=== PATIENT | female | born 1955 | race Hispanic/Latino ===

== ENCOUNTER → 2019-03-19 | Outpatient (CLI) | payer OTHER ==
[~2019-03-19] MED LIST: ASPI-1181 PO; ATOR40TA71 PO; DIPH25 PO; DORZ10DR20 OU; INSU3INS9 SQ; KETO5DRO82 OU; LATA2.5D2 OU; LOSA50TA64 PO; METF-446 PO; METO-408 PO; PIOG15TA66 PO; PRED20TA3 PO; PROP15DR OU; RANI-662 PO; RANI150T7 PO
== END | disposition home or self-care (01) ==
LOC: EDUNIT# 13:00 → SHCH 13:09
PROVIDERS: ATTEND Internal Medicine Cardiovascular Disease
DX: I65.23 Occlusion and stenosis of bilateral carotid arteries (principal)
CPT/HCPCS: 93880

== ENCOUNTER → 2019-03-22 | Outpatient (CLI) | payer OTHER ==
[~2019-03-22] MED LIST changes: +IOHEXOL 350 MG/ML 100ML INFUS..BTL IV ONE; +IOHEXOL-350 50ML VIAL IV ONE
== END | disposition home or self-care (01) ==
LOC: RAH 08:41
PROVIDERS: ATTEND Internal Medicine Cardiovascular Disease
DX: I70.293 Other atherosclerosis of native arteries of extremities, bilateral legs (principal)
CPT/HCPCS: 75635; Q9967 ×2

== ENCOUNTER → 2019-03-22 | Outpatient (CLI) | payer OTHER ==
[~2019-03-22] MED LIST changes: -IOHEXOL 350 MG/ML 100ML INFUS..BTL IV ONE; -IOHEXOL-350 50ML VIAL IV ONE
== END | disposition home or self-care (01) ==
LOC: EDUNIT# 03-12 09:00 → RAH 08:47
PROVIDERS: ATTEND Internal Medicine Cardiovascular Disease
DX: Z13.6 Encounter for screening for cardiovascular disorders (principal)
CPT/HCPCS: 75571

== ENCOUNTER 2019-04-10 05:47 | Day surgery (SDC) | payer OTHER ==
[2019-04-06 11:22] VITALS: BP 170/92
[2019-04-06 11:26] LABS: CREATININE 0.8 mg/dL (0.5-1.5); POTASSIUM 4.4 mmol/L (3.5-5.1)
[2019-04-06 11:28] LABS: BASOPHILS % (AUTO) 0.4 % (0.0-5.0); EOSINOPHILS % (AUTO) 1.1 % (0.0-8.0); HEMATOCRIT 36.6 % (36-48); LYMPHOCYTES % (AUTO) 31.7 % (21.0-51.0); MEAN CORPUSCULAR HEMOGLOBIN 28.8 pg (27.0-33.0); MEAN CORPUSCULAR HGB CONC 32.9 g/dL (32.0-36.0); MEAN CORPUSCULAR VOLUME 87.6 fL (79-99); MONOCYTES % (AUTO) 6.1 % (3.0-13.0); NEUTROPHILS % (AUTO) 60.7 % (40.0-77.0); PLATELET COUNT (AUTO) 199 K/uL (130-400); RED BLOOD CELL COUNT(AUTO) 4.17 MIL/uL (4.00-5.50); RED CELL DISTRIBUTION WIDTH 12.7 % (11.0-15.5); WHITE BLOOD COUNT (AUTO) 6.2 K/uL (4.8-10.8)
[2019-04-06 11:34] LABS: APPEARANCE,URINE Clear (CLEAR); BILIRUBIN,URINE Negative (NEGATIVE); COLOR,URINE Yellow (YELLOW); GLUCOSE, URINE (UA) >=1000 mg/dL (NEGATIVE); KETONES,URINE Negative (NEGATIVE); LEUKOCYTE ESTERASE ,URINE Negative (NEGATIVE); NITRATE,URINE Negative (NEGATIVE); OCCULT BLOOD,URINE Negative (NEGATIVE); PH,URINE 5.5 (5.0-8.0); PROTEIN,URINE Negative (NEGATIVE); UROBILINOGEN,URINE 0.2 mg/dL (0.2-1.0)
[2019-04-06 11:41] LABS: INR 0.91 (0.85-1.15); PARTIAL THROMBOPLASTIN TIME 24.5 SEC (26.3-35.5); PROTHROMBIN TIME 9.6 SEC (9.6-11.6)
[2019-04-06 11:50] LABS: BACTERIA,URINE Rare /HPF (None Seen); RBC,URINE None Seen /HPF (0-1); SQUAMOUS EPITHELIAL CELL,UR Rare /HPF (0-2); WBC,URINE None Seen /HPF (0-1)
[~2019-04-10] VITALS: Ht 154.9 cm; Wt 72.0 kg
[2019-04-10] VITALS (11 sets, daily range): BP systolic 129–170; BP diastolic 60–72
[~2019-04-10 05:47] MED LIST changes: -ASPI-1181 PO; +METHYLPREDNISOLONE SOD SUCC 125MG/2ML VIAL IVP SCH; +SODIUM CHLORIDE 0.9% 500ML 500 ML IV SCH
[2019-04-10] MEDS ORDERED: SODIUM CHLORIDE 0.9% 1000ML 1,000 ML IV ONE (06:08)
--- NOTE | 2019-04-10 06:51 | NUR ---
WOUND LATER EDGE OF LEFT FOOT ON PINKY TOE SIDE SMALL WOUND NOTED .COVERED WITH BANDAID. Addendum: 04/10/19 at 0653 by MAGDALENO PELAYO RN Amended: Links added.
[2019-04-10] MEDS ORDERED: HEPARIN SODIUM 1000UNIT/ML 10ML VIAL ONE (07:12)
[2019-04-10] MEDS ORDERED: LIDOCAINE HCL 2% 20ML ONE (07:13)
[2019-04-10] MEDS ORDERED: MEPERIDINE-PF 25 MG/ML SYG ONE ×2 (07:13→08:12)
[2019-04-10] MEDS ORDERED: IOHEXOL-350 50ML VIAL IV ONE (07:13)
[2019-04-10] MEDS ORDERED: MIDAZOLAM HCL 1 MG/ML 2ML VIAL ONE ×2 (07:13→08:12)
[2019-04-10] MEDS ORDERED: IOHEXOL 350 MG/ML 100ML INFUS..BTL IV ONE (07:13)
[2019-04-10] MEDS ORDERED: NITROGLYCERIN 5 MG/ML 10 ML VIAL IV ONE (07:13)
[2019-04-10] MEDS ORDERED: INSULIN HUMULIN R 100 UNIT/ML 3ML ONE (07:15)
--- NOTE | 2019-04-10 07:25 | NUR ---
PROCEDURE PT TAKEN TO CONTINUOUS [employer] HELPER FOR SCHEDULED PROCEDURE, FAMILY AT BEDSIDE
[2019-04-10] MEDS ORDERED: INSULIN HUMULIN R 100 UNIT/ML 3ML SQ SCH ×2 (07:30→11:30)
[2019-04-10] MEDS ORDERED: LABETALOL HCL 5 MG/ML 20ML VIAL IV ONE (07:59)
[2019-04-10] MEDS ORDERED: SODIUM CHLORIDE 0.9% 1000ML 1,000 ML IV SCH (08:46)
[2019-04-10] MEDS ORDERED: DEXTROSE 50%-WATER 50 ML DISP.SYRIN IV PRN (09:00)
[2019-04-10] MEDS ORDERED: ASPI-1181 PO (09:00)
[2019-04-10] MEDS ORDERED: GLUCAGON 1MG KIT 1 MG ML IM PRN (09:00)
--- NOTE | 2019-04-10 09:15 | NUR ---
post received pt back from labor relations representative s/p [facility], abd aortagram. right groin with Mynx closure device. dressing dry and intact, see post cath assessment, vs stable on arrival. pts daughter at bedside. plan of care discuss with patient / daughter. Dr. Sánchez had a lenghty discussion with patient / daughter about [facility] findings recommendations. He explained in detailed the need for patient to have CABG as soon as possible this admission if patient agreed. Patient/ pts daughter stated they will like to speak to all the family and make a decision based on that. Patient stated she would rather go home and return after Holidays. Dr. Teo Sánchez discuss risks and complications of CAbG and the need for doing cabg soon as possible. Patient's cath diaghram discuss with daughter in detailed , both pt/daughter verbalized understanding. Patient/ pts daughter instructed to keep right leg straight and importance of keeping bedrest for 6 hours. both verbalized understanding. call light within reach.
--- NOTE | 2019-04-10 14:16 | NUR ---
dc dc instructions given to pt's daughter with new rx, instructed to f/u with DR. Church and DR stan Max, copy of heart cath report/diaphragm given to them, instructed to stop metoprolol old dose and start new toprol medication prescribed. Also to hold metformin for 48 hrs post procedure then resume, and continue rest of home meds. right groin dressing dry and intact, no hematoma or bleeding noted. Patient continue bedrest ,
--- NOTE | 2019-04-10 14:45 | NUR ---
report report given to Sheila Wong RN , pt awake and alert in bed
--- NOTE | 2019-04-10 15:15 | NUR ---
Pt discharged home. Tolerating fluids/solids well, voiding well, ambulating well. Pt denies any severe pain, nausea, or dizziness. Discharge instructions and prescription given to pt previously by MENG Donohue. Pt reminded of routine and emergency care of right femoral cath site. Pt and daughter deny any further questions at this time. Right femoral cath site remains soft, non-tender. Dressing remains clean, dry, and intact.
== END 2019-04-10 15:15 | disposition home or self-care (01) ==
LOC: DAH 05:47
PROVIDERS: ATTEND Internal Medicine Cardiovascular Disease
DX: I25.118 Atherosclerotic heart disease of native coronary artery with other forms of angina pectoris (principal); I70.213 Atherosclerosis of native arteries of extremities with intermittent claudication, bilateral legs; L97.528 Non-pressure chronic ulcer of other part of left foot with other specified severity; I10 Essential (primary) hypertension; E78.5 Hyperlipidemia, unspecified; E11.9 Type 2 diabetes mellitus without complications; Z88.1 Allergy status to other antibiotic agents; Z88.2 Allergy status to sulfonamides; Z88.8 Allergy status to other drugs, medicaments and biological substances; Z88.3 Allergy status to other anti-infective agents; Z79.4 Long term (current) use of insulin; Z79.899 Other long term (current) drug therapy; Z79.82 Long term (current) use of aspirin; Z79.01 Long term (current) use of anticoagulants; Z82.49 Family history of ischemic heart disease and other diseases of the circulatory system; Z82.3 Family history of stroke
CPT/HCPCS: 36246; 36415; 71045; 75625; 75716; 80048; 81001; 82948 ×2; 85025; 85610; 85730; 93005; 93458; 96374; A4215; A4216; A4221; A4222; A4223 ×3; A4606; A4663; C1760; C1769; C1894; J1644; J1815 ×2; J2175 ×2; J2250 ×2; J2930; J3490 ×3; J7030; Q9965 ×2; Q9967 ×2; 75630; 99156; 99157

== ENCOUNTER 2021-02-24 16:00 | Inpatient (IN) | payer BC ==
[~2021-02-24] VITALS: Ht 154.9 cm; Wt 69.9 kg
[~2021-02-24 16:00] MED LIST changes: +ASPI-1443 PO; -DIPH25 PO; -DORZ10DR20 OU; -INSU3INS9 SQ; -KETO5DRO82 OU; -LATA2.5D2 OU; -LOSA50TA64 PO; -METF-446 PO; -METHYLPREDNISOLONE SOD SUCC 125MG/2ML VIAL IVP SCH; -METO-408 PO; -PIOG15TA66 PO; -PRED20TA3 PO; -PROP15DR OU; -RANI-662 PO; -RANI150T7 PO; -SODIUM CHLORIDE 0.9% 500ML 500 ML IV SCH
[2021-02-25 12:09] LABS: BASOPHILS % (AUTO) 0.5 % (0.0-5.0); EOSINOPHILS % (AUTO) 0.6 % (0.0-8.0); LYMPHOCYTES % (AUTO) 26.3 % (21.0-51.0); MEAN CORPUSCULAR HEMOGLOBIN 26.7 pg (27.0-33.0); MEAN CORPUSCULAR HGB CONC 31.6 g/dL (32.0-36.0); MEAN CORPUSCULAR VOLUME 84.4 fL (79-99); MONOCYTES % (AUTO) 5.8 % (3.0-13.0); NEUTROPHILS % (AUTO) 66.5 % (40.0-77.0); PLATELET COUNT (AUTO) 262 K/uL (130-400); RED CELL DISTRIBUTION WIDTH 14.1 % (11.0-15.5); WHITE BLOOD COUNT (AUTO) 7.7 K/uL (4.8-10.8)
[2021-02-25 12:20] LABS: PROTHROMBIN TIME 10.9 SEC (9.6-11.6)
[2021-02-25 12:22] LABS: PARTIAL THROMBOPLASTIN TIME 25.6 SEC (26.3-35.5)
[2021-02-25 12:29] LABS: ALBUMIN 4.1 g/dL (3.5-5.0); BILIRUBIN,TOTAL 0.3 mg/dL (0.2-1.0); CREATININE 0.9 mg/dL (0.5-1.5); POTASSIUM 4.9 mmol/L (3.5-5.1)
[2021-02-25 12:44] VITALS: BP 166/86
[2021-02-25] MEDS ORDERED: FLUT16H NASAL (14:13)
[2021-02-25] MEDS ORDERED: LOSA50TA64 PO (14:13)
[2021-02-25] MEDS ORDERED: MV-M1TAB20 PO (14:13)
[2021-02-25] MEDS ORDERED: METF-446 PO (14:13)
[2021-02-25] MEDS ORDERED: INSU3INS9 SQ (14:13)
[2021-02-25] MEDS ORDERED: CILO100T PO (14:13)
[2021-02-25] MEDS ORDERED: MONT-39 PO (14:13)
[2021-02-25] MEDS ORDERED: METO-408 PO (14:13)
[2021-02-27] VITALS (19 sets, daily range): BP systolic 100–179; BP diastolic 46–102
[2021-02-27] MEDS ORDERED: 0.9%NACL 1000ML 1,000 ML IV ONE (10:12)
[2021-02-27] MEDS: CEFAZOLIN SODIUM 1 GM VIAL ONE ×2 (11:26→14:16)
[2021-02-27] MEDS ORDERED: CEFAZOLIN SODIUM 1 GM VIAL ONE (11:55)
[2021-02-27] MEDS ORDERED: TRAMADOL HCL 50 MG TABLET PO PRN (12:00)
[2021-02-27] MEDS ORDERED: ROCURONIUM 10MG/1ML SYR 10 MG/ML ML ONE (12:49)
[2021-02-27] MEDS ORDERED: PROPOFOL 10 MG/ML 20ML VIAL IV ONE (12:49)
[2021-02-27] MEDS ORDERED: MIDAZOLAM HCL 1 MG/ML 2ML VIAL ONE (12:49)
[2021-02-27] MEDS ORDERED: FENTANYL CITRATE PF 50 MCG/1 ML 2ML VIAL ONE (12:49)
[2021-02-27] MEDS ORDERED: EPHEDRINE SULFATE 50 MG/ML AMPULE ONE (13:57)
[2021-02-27] MEDS ORDERED: POTASSIUM CHLORIDE 20MEQ/100ML 100 ML IV PRN (15:00)
[2021-02-27] MEDS ORDERED: GLUCAGON 1MG KIT 1 MG ML IM PRN (15:00)
[2021-02-27] MEDS ORDERED: LIDOCAINE HCL-MPF 1% 2ML VIAL IV PRN (15:00)
[2021-02-27] MEDS ORDERED: DEXTROSE 50%-WATER 50 ML DISP.SYRIN IV PRN (15:00)
[2021-02-27] MEDS ORDERED: KCL 20 MEQ ERTAB PO PRN (15:00)
[2021-02-27] MEDS ORDERED: POTASSIUM CHLORIDE 10% ELIXIR 20 MEQ/15 ML UDCUP PO PRN (15:00)
[2021-02-27] MEDS ORDERED: KETOROLAC 30MG VIAL (30MG/ML) ONE (15:35)
[2021-02-27] MEDS ORDERED: GLYCOPYRROLATE 1 MG/5 ML SYRINGE ONE (15:53)
[2021-02-27] MEDS ORDERED: NEOSTIGMINE 5MG/5ML SYR IV ONE (15:53)
[2021-02-27] MEDS ORDERED: HYDRALAZINE 20MG/ML VIAL ONE (16:21)
[2021-02-27] MEDS ORDERED: MEPERIDINE-PF 25 MG/ML SYG ONE (16:29)
[2021-02-27] MEDS: INSULIN HUMULIN R 100 UNIT/ML 3ML SQ SCH ×2 (16:30→20:33)
[2021-02-27] MEDS: METFORMIN HCL 500 MG TABLET PO SCH (17:00)
[2021-02-27] MEDS: KETOROLAC 30MG VIAL (30MG/ML) IV SCH ×2 (18:08→23:10)
[2021-02-27] MEDS: DOCUSATE SODIUM 100 MG CAP PO SCH (20:33)
[2021-02-27] MEDS: FAMOTIDINE 20MG TAB PO SCH (20:33)
[2021-02-27] MEDS: TRAMADOL HCL 50 MG TABLET PO PRN ×2 (20:33→22:03)
[2021-02-27] MEDS: CEFAZOLIN SODIUM 1 GM VIAL IVP SCH (22:33)
[2021-02-28 02:10] VITALS: BP 144/75
[2021-02-28] MEDS: TRAMADOL HCL 50 MG TABLET PO PRN (04:24)
[2021-02-28 05:27] VITALS: BP 145/66
[2021-02-28] MEDS: KETOROLAC 30MG VIAL (30MG/ML) IV SCH ×3 (06:01→17:47)
[2021-02-28] MEDS: CEFAZOLIN SODIUM 1 GM VIAL IVP SCH ×3 (06:01→22:34)
[2021-02-28] MEDS: INSULIN HUMULIN R 100 UNIT/ML 3ML SQ SCH ×4 (06:41→20:09)
[2021-02-28 08:40] VITALS: BP 120/60
[2021-02-28] MEDS: ONDANSETRON 4MG INJ IVP PRN ×2 (09:11→17:46)
[2021-02-28] MEDS: CLOPIDOGREL 75MG TAB PO SCH (09:15)
[2021-02-28] MEDS: DOCUSATE SODIUM 100 MG CAP PO SCH ×2 (09:15→20:07)
[2021-02-28] MEDS: CILOSTAZOL 100 MG TAB PO SCH (09:16)
[2021-02-28] MEDS: METFORMIN HCL 500 MG TABLET PO SCH ×2 (09:17→16:55)
[2021-02-28] MEDS: ATORVASTATIN 40 MG TABLET PO SCH (09:17)
[2021-02-28] MEDS: FUROSEMIDE 20 MG TABLET PO SCH (09:17)
[2021-02-28] MEDS: FAMOTIDINE 20MG TAB PO SCH ×2 (09:17→20:07)
[2021-02-28] MEDS: LOSARTAN 50 MG TABLET PO SCH (09:17)
[2021-02-28] MEDS: ASPIRIN 81 MG EC TAB PO SCH (09:18)
[2021-02-28] MEDS: METOPROLOL SUCCINATE 50 MG TAB.SR.24H PO SCH (09:18)
[2021-02-28] MEDS: MONTELUKAST SODIUM 10 MG TAB PO SCH (09:18)
[2021-02-28] MEDS: MULTIVITAMINS/MINERALS/IRO TAB PO SCH (11:49)
[2021-02-28] MEDS: FLUTICASONE PROPIONATE 50MCG/SPRAY 16 GM BOTTLE NS SCH (11:49)
[2021-02-28 13:37] VITALS: BP 123/57
[2021-02-28 16:32] VITALS: BP 143/68
[2021-02-28 20:19] VITALS: BP 117/62
[2021-03-01 00:13] VITALS: BP 115/58
[2021-03-01] MEDS: TRAMADOL HCL 50 MG TABLET PO PRN (03:41)
[2021-03-01 04:32] VITALS: BP 131/61
[2021-03-01] MEDS: CEFAZOLIN SODIUM 1 GM VIAL IVP SCH (05:56)
[2021-03-01] MEDS: KETOROLAC 30MG VIAL (30MG/ML) IV SCH ×3 (05:57→11:55)
[2021-03-01] MEDS: INSULIN HUMULIN R 100 UNIT/ML 3ML SQ SCH ×2 (07:00→12:00)
[2021-03-01 08:08] VITALS: BP 131/57
[2021-03-01] MEDS: FAMOTIDINE 20MG TAB PO SCH (08:44)
[2021-03-01] MEDS: CILOSTAZOL 100 MG TAB PO SCH (08:44)
[2021-03-01] MEDS: LOSARTAN 50 MG TABLET PO SCH (08:45)
[2021-03-01] MEDS: MONTELUKAST SODIUM 10 MG TAB PO SCH (08:45)
[2021-03-01] MEDS: ASPIRIN 81 MG EC TAB PO SCH (08:46)
[2021-03-01] MEDS: DOCUSATE SODIUM 100 MG CAP PO SCH (08:46)
[2021-03-01] MEDS: FUROSEMIDE 20 MG TABLET PO SCH (08:46)
[2021-03-01] MEDS: ATORVASTATIN 40 MG TABLET PO SCH (08:46)
[2021-03-01] MEDS: CLOPIDOGREL 75MG TAB PO SCH (08:47)
[2021-03-01] MEDS: METOPROLOL SUCCINATE 50 MG TAB.SR.24H PO SCH (08:47)
[2021-03-01] MEDS: FLUTICASONE PROPIONATE 50MCG/SPRAY 16 GM BOTTLE NS SCH (08:49)
[2021-03-01] MEDS: METFORMIN HCL 500 MG TABLET PO SCH (08:49)
[2021-03-01] MEDS: MULTIVITAMINS/MINERALS/IRO TAB PO SCH (08:49)
[2021-03-01 12:08] VITALS: BP 148/66
== END 2021-03-01 16:19 | disposition home or self-care (01) | DRG 253 ==
LOC: DAHIP 02-27 09:56 → 4DH 02-27 17:14
PROVIDERS: ADMIT Thoracic Surgery (Cardiothoracic Vascular Surgery); ATTEND Thoracic Surgery (Cardiothoracic Vascular Surgery)
PROC: 041M0KQ Bypass Right Popliteal Artery to Lower Extremity Artery with Nonautologous Tissue Substitute, Open Approach (ICD-10-PCS; principal; 2021-02-27 14:20)
DX: E11.51 Type 2 diabetes mellitus with diabetic peripheral angiopathy without gangrene (principal); L97.919 Non-pressure chronic ulcer of unspecified part of right lower leg with unspecified severity; E11.621 Type 2 diabetes mellitus with foot ulcer; E78.00 Pure hypercholesterolemia, unspecified; I10 Essential (primary) hypertension; I25.10 Atherosclerotic heart disease of native coronary artery without angina pectoris; M19.90 Unspecified osteoarthritis, unspecified site; E78.5 Hyperlipidemia, unspecified; Z20.822 Contact with and (suspected) exposure to COVID-19; Z88.2 Allergy status to sulfonamides; Z88.8 Allergy status to other drugs, medicaments and biological substances; Z91.041 Radiographic dye allergy status; Z95.1 Presence of aortocoronary bypass graft
CPT/HCPCS: 36415; 71046; 80053; 82948; 85025; 85610; 85730; 86850; 86900; 86901; 87635; 93005; 97039; G0378; J0360; J0690; J1644; J1815; J1885; J2175; J2250; J2405; J2704; J2710; J3010; J3490; J7030; J7120

== ENCOUNTER 2021-04-01 16:09 | Inpatient (IN) | payer BC ==
[~2021-04-01] VITALS: Ht 160 cm; Wt 64.7 kg
[~2021-04-01 16:09] MED LIST changes: +CILO100T PO; +FLUT16H NASAL; +INSU3INS9 SQ; +LOSA50TA64 PO; +METF-446 PO; +METO-408 PO; +MONT-39 PO; +MV-M1TAB20 PO
[2021-04-01 18:50] LABS: BASOPHILS % (AUTO) 0.5 % (0.0-5.0); EOSINOPHILS % (AUTO) 1.3 % (0.0-8.0); LYMPHOCYTES % (AUTO) 33.7 % (21.0-51.0); MEAN CORPUSCULAR HEMOGLOBIN 26.2 pg (27.0-33.0); MEAN CORPUSCULAR HGB CONC 31.3 g/dL (32.0-36.0); MEAN CORPUSCULAR VOLUME 83.9 fL (79-99); MONOCYTES % (AUTO) 6.3 % (3.0-13.0); NEUTROPHILS % (AUTO) 57.8 % (40.0-77.0); PLATELET COUNT (AUTO) 269 K/uL (130-400); RED BLOOD CELL COUNT(AUTO) 2.86 MIL/uL (4.00-5.50); RED CELL DISTRIBUTION WIDTH 15.1 % (11.0-15.5); WHITE BLOOD COUNT (AUTO) 8.3 K/uL (4.8-10.8)
[2021-04-01 19:17] LABS: POTASSIUM 4.4 mmol/L (3.5-5.1)
[2021-04-01 19:22] LABS: ALBUMIN 4.1 g/dL (3.5-5.0); BILIRUBIN,TOTAL 0.1 mg/dL (0.2-1.0); TOTAL PROTEIN, SERUM 7.9 g/dL (6.0-8.3)
[2021-04-01] MEDS ORDERED: CEFAZOLIN SODIUM 1 GM VIAL IVP PRN (19:30)
[2021-04-01 19:33] LABS: INR 0.99 (0.85-1.15); PROTHROMBIN TIME 10.8 SEC (9.6-11.6)
[2021-04-01 19:34] LABS: PARTIAL THROMBOPLASTIN TIME 21.1 SEC (26.3-35.5)
[2021-04-01] MEDS ORDERED: MORPHINE 2 MG SYG IVP SCH (20:35)
[2021-04-01] MEDS: ONDANSETRON 4MG INJ IVP SCH (20:36)
[2021-04-01 22:30] VITALS: BP 158/82
[2021-04-02] VITALS (13 sets, daily range): BP systolic 111–159; BP diastolic 43–80
[2021-04-02] MEDS ORDERED: MORPHINE 2 MG SYG IVP PRN (02:00)
[2021-04-02 02:38] LABS: MEAN CORPUSCULAR HEMOGLOBIN 26.6 pg (27.0-33.0); MEAN CORPUSCULAR HGB CONC 31.6 g/dL (32.0-36.0); MEAN CORPUSCULAR VOLUME 84.1 fL (79-99); RED BLOOD CELL COUNT(AUTO) 2.33 MIL/uL (4.00-5.50); RED CELL DISTRIBUTION WIDTH 15.2 % (11.0-15.5); WHITE BLOOD COUNT (AUTO) 7.3 K/uL (4.8-10.8)
[2021-04-02 02:45] LABS: HEMATOCRIT 19.6 % (36-48)
[2021-04-02] MEDS ORDERED: MORPHINE 2 MG SYG IVP SCH (02:45)
[2021-04-02 02:47] LABS: CREATININE 0.8 mg/dL (0.5-1.5); POTASSIUM 4.2 mmol/L (3.5-5.1)
[2021-04-02] MEDS ORDERED: FERR325T29 PO (02:48)
[2021-04-02] MEDS ORDERED: CLOP75TA32 PO (02:48)
[2021-04-02 02:59] LABS: HEMOGLOBIN A1C 10.4 % (4.0-6.0)
[2021-04-02 10:37] LABS: HEMATOCRIT 23.3 % (36-48); MEAN CORPUSCULAR HEMOGLOBIN 27.5 pg (27.0-33.0); MEAN CORPUSCULAR VOLUME 83.2 fL (79-99); RED BLOOD CELL COUNT(AUTO) 2.8 MIL/uL (4.00-5.50); RED CELL DISTRIBUTION WIDTH 15.2 % (11.0-15.5); WHITE BLOOD COUNT (AUTO) 7.1 K/uL (4.8-10.8)
[2021-04-02] MEDS ORDERED: CEFAZOLIN SODIUM 1 GM VIAL ONE (14:26)
[2021-04-02] MEDS ORDERED: MIDAZOLAM HCL 1 MG/ML 2ML VIAL ONE (15:00)
[2021-04-02] MEDS ORDERED: PROPOFOL 10 MG/ML 20ML VIAL IV ONE (15:00)
[2021-04-02] MEDS ORDERED: LIDOCAINE PF 100MG/5ML (2%) SYRINGE 5ML ONE (15:00)
[2021-04-02] MEDS ORDERED: FENTANYL CITRATE PF 50 MCG/1 ML 2ML VIAL ONE ×4 (15:01→18:11)
[2021-04-02] MEDS ORDERED: ROCURONIUM 10MG/1ML SYR 10 MG/ML ML ONE (15:08)
[2021-04-02 16:12] LABS: HEMATOCRIT 21.1 % (36-48)
[2021-04-02] MEDS ORDERED: LABETALOL 20MG VIAL IV ONE (17:19)
[2021-04-02] MEDS ORDERED: GLYCOPYRROLATE 1 MG/5 ML SYRINGE ONE (17:19)
[2021-04-02] MEDS ORDERED: ONDANSETRON 4MG INJ ONE (17:19)
[2021-04-02] MEDS ORDERED: NEOSTIGMINE 5MG/5ML SYR IV ONE (17:21)
[2021-04-02] MEDS ORDERED: ACETAMINOPHEN 325 MG TAB PO PRN (18:00)
[2021-04-02] MEDS ORDERED: HYDRALAZINE 20MG/ML VIAL IV PRN (19:00)
[2021-04-02] MEDS: METOPROLOL SUCCINATE 50 MG TAB.SR.24H PO SCH (19:49)
[2021-04-02] MEDS: LOSARTAN 50 MG TABLET PO SCH (19:53)
[2021-04-02] MEDS: TRAMADOL HCL 50 MG TABLET PO PRN ×2 (19:54→20:26)
[2021-04-02] MEDS: GABAPENTIN 100 MG CAPSULE PO SCH (20:30)
[2021-04-02] MEDS: ONDANSETRON 4MG INJ IVP SCH (20:36)
[2021-04-02] MEDS ORDERED: MORPHINE 2 MG SYG ONE (23:26)
[2021-04-03] VITALS (9 sets, daily range): BP systolic 90–162; BP diastolic 44–67
[2021-04-03 00:03] LABS: HEMATOCRIT 25.3 % (36-48)
[2021-04-03] MEDS: CEFAZOLIN SODIUM 1 GM VIAL IVP SCH ×3 (01:00→17:26)
[2021-04-03] MEDS: MORPHINE 2 MG SYG IVP PRN ×3 (03:29→06:24)
[2021-04-03 06:38] LABS: HEMATOCRIT 26.3 % (36-48)
[2021-04-03] MEDS: TRAMADOL HCL 50 MG TABLET PO PRN (07:47)
[2021-04-03] MEDS: METOPROLOL SUCCINATE 50 MG TAB.SR.24H PO SCH (07:47)
[2021-04-03] MEDS: GABAPENTIN 100 MG CAPSULE PO SCH ×2 (07:48→21:00)
[2021-04-03] MEDS: LOSARTAN 50 MG TABLET PO SCH (07:48)
[2021-04-03] MEDS ORDERED: DEXTROSE 50%-WATER 50 ML DISP.SYRIN IV PRN (08:00)
[2021-04-03] MEDS ORDERED: GLUCAGON 1MG KIT 1 MG ML IM PRN (08:00)
[2021-04-03 08:12] LABS: MEAN CORPUSCULAR HEMOGLOBIN 28.1 pg (27.0-33.0); MEAN CORPUSCULAR VOLUME 85.3 fL (79-99); RED BLOOD CELL COUNT(AUTO) 3.13 MIL/uL (4.00-5.50); RED CELL DISTRIBUTION WIDTH 15.5 % (11.0-15.5); WHITE BLOOD COUNT (AUTO) 6.9 K/uL (4.8-10.8)
[2021-04-03 08:55] LABS: CREATININE 0.8 mg/dL (0.5-1.5); POTASSIUM 4.5 mmol/L (3.5-5.1)
[2021-04-03] MEDS: CLOPIDOGREL 75MG TAB PO SCH ×2 (09:00→09:10)
[2021-04-03] MEDS ORDERED: FLUTICASONE PROPIONATE 50MCG/SPRAY 16 GM BOTTLE EN SCH (09:00)
[2021-04-03] MEDS ORDERED: METOPROLOL SUCCINATE 50 MG TAB.SR.24H PO SCH (09:00)
[2021-04-03] MEDS ORDERED: FE FUMARATE/FA/MV, MIN COMB#15 1 TAB PO SCH (09:00)
[2021-04-03] MEDS: CILOSTAZOL 100 MG TAB PO SCH ×3 (09:00→21:00)
[2021-04-03] MEDS ORDERED: LOSARTAN 50 MG TABLET PO SCH (09:00)
[2021-04-03] MEDS: ASPIRIN 81 MG EC TAB PO SCH ×2 (09:00→09:11)
[2021-04-03] MEDS: METFORMIN HCL 500 MG TABLET PO SCH ×2 (09:09→17:26)
[2021-04-03] MEDS: KETOROLAC 30MG VIAL (30MG/ML) IV SCH ×3 (09:10→21:00)
[2021-04-03] MEDS: FERROUS SULFATE 325 MG TABLET.DR PO SCH ×2 (09:11→17:26)
[2021-04-03] MEDS: MONTELUKAST SODIUM 10 MG TAB PO SCH (09:11)
[2021-04-03] MEDS: FAMOTIDINE 20MG TAB PO SCH ×2 (09:11→21:00)
[2021-04-03] MEDS: INSULIN HUMULIN R 100 UNIT/ML 3ML SQ SCH ×3 (11:30→22:05)
[2021-04-03 12:26] LABS: HEMATOCRIT 28.2 % (36-48)
[2021-04-03] MEDS: FLUTICASONE PROPIONATE 50MCG/SPRAY 16 GM BOTTLE EN SCH (13:56)
[2021-04-03] MEDS: FE FUMARATE/FA/MV, MIN COMB#15 1 TAB PO SCH (17:26)
[2021-04-03 17:48] LABS: HEMATOCRIT 29.1 % (36-48)
[2021-04-03] MEDS: ONDANSETRON 4MG INJ IVP SCH (20:36)
[2021-04-03] MEDS: ATORVASTATIN 40 MG TABLET PO SCH (21:00)
[2021-04-04 03:18] VITALS: BP 107/58
[2021-04-04] MEDS: KETOROLAC 30MG VIAL (30MG/ML) IV SCH ×4 (03:48→20:58)
[2021-04-04] MEDS: TRAMADOL HCL 50 MG TABLET PO PRN (03:49)
[2021-04-04 04:18] LABS: HEMATOCRIT 28.1 % (36-48); MEAN CORPUSCULAR HEMOGLOBIN 27.6 pg (27.0-33.0); MEAN CORPUSCULAR VOLUME 86.2 fL (79-99); RED BLOOD CELL COUNT(AUTO) 3.26 MIL/uL (4.00-5.50); WHITE BLOOD COUNT (AUTO) 10.4 K/uL (4.8-10.8)
[2021-04-04 04:30] LABS: CREATININE 1.1 mg/dL (0.5-1.5); POTASSIUM 3.8 mmol/L (3.5-5.1)
[2021-04-04] MEDS: INSULIN HUMULIN R 100 UNIT/ML 3ML SQ SCH ×4 (07:20→21:07)
[2021-04-04 07:57] VITALS: BP 95/51
[2021-04-04] MEDS: ASPIRIN 81 MG EC TAB PO SCH (08:44)
[2021-04-04] MEDS: GABAPENTIN 100 MG CAPSULE PO SCH ×2 (08:44→20:58)
[2021-04-04] MEDS: FLUTICASONE PROPIONATE 50MCG/SPRAY 16 GM BOTTLE EN SCH (08:47)
[2021-04-04] MEDS: FERROUS SULFATE 325 MG TABLET.DR PO SCH ×2 (08:47→16:43)
[2021-04-04] MEDS: CILOSTAZOL 100 MG TAB PO SCH ×2 (08:53→20:58)
[2021-04-04] MEDS: FAMOTIDINE 20MG TAB PO SCH ×2 (08:53→20:58)
[2021-04-04] MEDS: METOPROLOL SUCCINATE 50 MG TAB.SR.24H PO SCH ×2 (09:00→11:21)
[2021-04-04] MEDS ORDERED: KCL 20 MEQ ERTAB PO PRN (11:00)
[2021-04-04] MEDS ORDERED: POTASSIUM CHLORIDE 20MEQ/100ML 100 ML IV PRN (11:00)
[2021-04-04] MEDS ORDERED: POTASSIUM CHLORIDE 10% ELIXIR 20 MEQ/15 ML UDCUP PO PRN (11:00)
[2021-04-04] MEDS ORDERED: LIDOCAINE HCL-MPF 1% 2ML VIAL IV PRN (11:00)
[2021-04-04] MEDS: CLOPIDOGREL 75MG TAB PO SCH (11:20)
[2021-04-04] MEDS: MONTELUKAST SODIUM 10 MG TAB PO SCH (11:20)
[2021-04-04] MEDS: FE FUMARATE/FA/MV, MIN COMB#15 1 TAB PO SCH (11:20)
[2021-04-04] MEDS: FUROSEMIDE 20 MG TABLET PO SCH ×2 (11:21→18:30)
[2021-04-04] MEDS: METFORMIN HCL 500 MG TABLET PO SCH ×2 (11:21→16:43)
[2021-04-04 11:34] VITALS: BP 122/57
[2021-04-04 16:05] VITALS: BP 115/52
[2021-04-04] MEDS: LOSARTAN 50 MG TABLET PO SCH (16:44)
[2021-04-04] MEDS: ONDANSETRON 4MG INJ IVP SCH (19:17)
[2021-04-04 20:00] VITALS: BP 98/49
[2021-04-04] MEDS: ATORVASTATIN 40 MG TABLET PO SCH (20:58)
[2021-04-05] VITALS (7 sets, daily range): BP systolic 90–148; BP diastolic 43–93
[2021-04-05] MEDS: TRAMADOL HCL 50 MG TABLET PO PRN (00:40)
[2021-04-05] MEDS: KETOROLAC 30MG VIAL (30MG/ML) IV SCH ×3 (02:07→15:08)
[2021-04-05 03:38] LABS: HEMATOCRIT 25.2 % (36-48); MEAN CORPUSCULAR HEMOGLOBIN 28.3 pg (27.0-33.0); MEAN CORPUSCULAR HGB CONC 32.5 g/dL (32.0-36.0); MEAN CORPUSCULAR VOLUME 86.9 fL (79-99); RED BLOOD CELL COUNT(AUTO) 2.9 MIL/uL (4.00-5.50); RED CELL DISTRIBUTION WIDTH 15.7 % (11.0-15.5); WHITE BLOOD COUNT (AUTO) 9.2 K/uL (4.8-10.8)
[2021-04-05 03:50] LABS: CREATININE 1.2 mg/dL (0.5-1.5)
[2021-04-05] MEDS: INSULIN HUMULIN R 100 UNIT/ML 3ML SQ SCH ×4 (06:16→20:27)
[2021-04-05] MEDS: GABAPENTIN 100 MG CAPSULE PO SCH ×2 (07:49→20:11)
[2021-04-05] MEDS: CILOSTAZOL 100 MG TAB PO SCH ×2 (07:49→20:11)
[2021-04-05] MEDS: LOSARTAN 50 MG TABLET PO SCH (07:49)
[2021-04-05] MEDS: ASPIRIN 81 MG EC TAB PO SCH (07:49)
[2021-04-05] MEDS: CLOPIDOGREL 75MG TAB PO SCH (07:49)
[2021-04-05] MEDS: METOPROLOL SUCCINATE 50 MG TAB.SR.24H PO SCH ×2 (07:50→09:00)
[2021-04-05] MEDS: FAMOTIDINE 20MG TAB PO SCH ×2 (07:50→20:11)
[2021-04-05] MEDS: FUROSEMIDE 20 MG TABLET PO SCH ×2 (07:50→16:24)
[2021-04-05] MEDS: METFORMIN HCL 500 MG TABLET PO SCH ×2 (07:51→16:24)
[2021-04-05] MEDS: FE FUMARATE/FA/MV, MIN COMB#15 1 TAB PO SCH (09:01)
[2021-04-05] MEDS: FERROUS SULFATE 325 MG TABLET.DR PO SCH ×2 (09:01→16:23)
[2021-04-05] MEDS: FLUTICASONE PROPIONATE 50MCG/SPRAY 16 GM BOTTLE EN SCH (09:01)
[2021-04-05] MEDS: MONTELUKAST SODIUM 10 MG TAB PO SCH (09:02)
[2021-04-05] MEDS: ONDANSETRON 4MG INJ IVP SCH (20:07)
[2021-04-05] MEDS: ATORVASTATIN 40 MG TABLET PO SCH (20:11)
[2021-04-06] VITALS (7 sets, daily range): BP systolic 101–136; BP diastolic 47–63
[2021-04-06] MEDS: TRAMADOL HCL 50 MG TABLET PO PRN (04:02)
[2021-04-06] MEDS: INSULIN HUMULIN R 100 UNIT/ML 3ML SQ SCH ×3 (06:15→21:00)
[2021-04-06] MEDS: FLUTICASONE PROPIONATE 50MCG/SPRAY 16 GM BOTTLE EN SCH (09:00)
[2021-04-06] MEDS: METOPROLOL SUCCINATE 50 MG TAB.SR.24H PO SCH ×2 (09:00→10:37)
[2021-04-06] MEDS: METFORMIN HCL 500 MG TABLET PO SCH ×2 (10:34→16:44)
[2021-04-06] MEDS: FERROUS SULFATE 325 MG TABLET.DR PO SCH ×2 (10:34→16:39)
[2021-04-06] MEDS: ASPIRIN 81 MG EC TAB PO SCH (10:34)
[2021-04-06] MEDS: LOSARTAN 50 MG TABLET PO SCH (10:35)
[2021-04-06] MEDS: FE FUMARATE/FA/MV, MIN COMB#15 1 TAB PO SCH (10:35)
[2021-04-06] MEDS: FUROSEMIDE 20 MG TABLET PO SCH ×2 (10:35→16:39)
[2021-04-06] MEDS: FAMOTIDINE 20MG TAB PO SCH ×2 (10:36→22:21)
[2021-04-06] MEDS: GABAPENTIN 100 MG CAPSULE PO SCH ×2 (10:36→22:21)
[2021-04-06] MEDS: CLOPIDOGREL 75MG TAB PO SCH (10:36)
[2021-04-06] MEDS: CILOSTAZOL 100 MG TAB PO SCH ×2 (10:37→22:21)
[2021-04-06] MEDS: MONTELUKAST SODIUM 10 MG TAB PO SCH (10:37)
[2021-04-06] MEDS: ONDANSETRON 4MG INJ IVP SCH (10:52)
[2021-04-06] MEDS: ATORVASTATIN 40 MG TABLET PO SCH (22:21)
[2021-04-07] VITALS (7 sets, daily range): BP systolic 88–139; BP diastolic 46–68
[2021-04-07] MEDS: TRAMADOL HCL 50 MG TABLET PO PRN (02:42)
[2021-04-07] MEDS: INSULIN HUMULIN R 100 UNIT/ML 3ML SQ SCH ×4 (07:20→22:42)
[2021-04-07] MEDS: FLUTICASONE PROPIONATE 50MCG/SPRAY 16 GM BOTTLE EN SCH (09:00)
[2021-04-07] MEDS: METOPROLOL SUCCINATE 50 MG TAB.SR.24H PO SCH ×2 (09:00→09:17)
[2021-04-07] MEDS: METFORMIN HCL 500 MG TABLET PO SCH ×2 (09:13→17:08)
[2021-04-07] MEDS: FERROUS SULFATE 325 MG TABLET.DR PO SCH ×2 (09:13→17:07)
[2021-04-07] MEDS: LOSARTAN 50 MG TABLET PO SCH (09:14)
[2021-04-07] MEDS: ASPIRIN 81 MG EC TAB PO SCH (09:14)
[2021-04-07] MEDS: FE FUMARATE/FA/MV, MIN COMB#15 1 TAB PO SCH (09:15)
[2021-04-07] MEDS: FUROSEMIDE 20 MG TABLET PO SCH ×2 (09:15→17:08)
[2021-04-07] MEDS: GABAPENTIN 100 MG CAPSULE PO SCH ×2 (09:16→22:31)
[2021-04-07] MEDS: FAMOTIDINE 20MG TAB PO SCH ×2 (09:16→22:32)
[2021-04-07] MEDS: CLOPIDOGREL 75MG TAB PO SCH (09:17)
[2021-04-07] MEDS: CILOSTAZOL 100 MG TAB PO SCH ×2 (09:17→22:32)
[2021-04-07] MEDS: MONTELUKAST SODIUM 10 MG TAB PO SCH (09:17)
[2021-04-07] MEDS: ONDANSETRON 4MG INJ IVP SCH (11:50)
[2021-04-07] MEDS: ATORVASTATIN 40 MG TABLET PO SCH (22:32)
[2021-04-08 04:20] VITALS: BP 113/58
[2021-04-08] MEDS ORDERED: TRAMADOL HCL 50 MG TABLET PO PRN ×2 (04:30)
[2021-04-08 05:37] LABS: BASOPHILS % (AUTO) 0.7 % (0.0-5.0); EOSINOPHILS % (AUTO) 5.9 % (0.0-8.0); HEMATOCRIT 24.1 % (36-48); LYMPHOCYTES % (AUTO) 22.1 % (21.0-51.0); MEAN CORPUSCULAR HEMOGLOBIN 28.3 pg (27.0-33.0); MEAN CORPUSCULAR HGB CONC 33.2 g/dL (32.0-36.0); MEAN CORPUSCULAR VOLUME 85.2 fL (79-99); MONOCYTES % (AUTO) 13.7 % (3.0-13.0); NEUTROPHILS % (AUTO) 57.1 % (40.0-77.0); PLATELET COUNT (AUTO) 275 K/uL (130-400); RED BLOOD CELL COUNT(AUTO) 2.83 MIL/uL (4.00-5.50); RED CELL DISTRIBUTION WIDTH 15.1 % (11.0-15.5); WHITE BLOOD COUNT (AUTO) 6.1 K/uL (4.8-10.8)
[2021-04-08] MEDS: INSULIN HUMULIN R 100 UNIT/ML 3ML SQ SCH ×2 (06:07→12:41)
[2021-04-08 06:12] LABS: ALBUMIN 2.9 g/dL (3.5-5.0); BILIRUBIN,TOTAL 0.3 mg/dL (0.2-1.0); CREATININE 1.2 mg/dL (0.5-1.5); POTASSIUM 3.8 mmol/L (3.5-5.1); TOTAL PROTEIN, SERUM 6.4 g/dL (6.0-8.3)
[2021-04-08 07:50] VITALS: BP 134/67
[2021-04-08] MEDS: METOPROLOL SUCCINATE 50 MG TAB.SR.24H PO SCH ×2 (09:00→09:52)
[2021-04-08] MEDS: FLUTICASONE PROPIONATE 50MCG/SPRAY 16 GM BOTTLE EN SCH (09:00)
[2021-04-08] MEDS: FERROUS SULFATE 325 MG TABLET.DR PO SCH (09:29)
[2021-04-08] MEDS: FE FUMARATE/FA/MV, MIN COMB#15 1 TAB PO SCH (09:30)
[2021-04-08] MEDS: METFORMIN HCL 500 MG TABLET PO SCH (09:30)
[2021-04-08] MEDS: CLOPIDOGREL 75MG TAB PO SCH (09:49)
[2021-04-08] MEDS: GABAPENTIN 100 MG CAPSULE PO SCH (09:50)
[2021-04-08] MEDS: ASPIRIN 81 MG EC TAB PO SCH (09:50)
[2021-04-08] MEDS: MONTELUKAST SODIUM 10 MG TAB PO SCH (09:50)
[2021-04-08] MEDS: FAMOTIDINE 20MG TAB PO SCH (09:51)
[2021-04-08] MEDS: FUROSEMIDE 20 MG TABLET PO SCH (09:51)
[2021-04-08] MEDS: LOSARTAN 50 MG TABLET PO SCH (09:52)
[2021-04-08] MEDS: CILOSTAZOL 100 MG TAB PO SCH (09:53)
[2021-04-08 12:29] VITALS: BP 118/58
[2021-04-08 15:23] VITALS: BP 159/63
== END 2021-04-08 16:00 | DRG 253 ==
LOC: EDH 16:09 → EDHIP 19:30 → 4BH 22:30 → 2DH 04-02 17:50 → 4CH 04-06 00:48
PROVIDERS: ADMIT Thoracic Surgery (Cardiothoracic Vascular Surgery); ATTEND Thoracic Surgery (Cardiothoracic Vascular Surgery)
PROC: 30233N1 Transfusion of Nonautologous Red Blood Cells into Peripheral Vein, Percutaneous Approach (ICD-10-PCS; 2021-04-02)
PROC: 04WY0KZ Revision of Nonautologous Tissue Substitute in Lower Artery, Open Approach (ICD-10-PCS; principal; 2021-04-02 15:04)
DX: T82.838A Hemorrhage due to vascular prosthetic devices, implants and grafts, initial encounter (principal); N17.9 Acute kidney failure, unspecified; L97.919 Non-pressure chronic ulcer of unspecified part of right lower leg with unspecified severity; L76.22 Postprocedural hemorrhage of skin and subcutaneous tissue following other procedure; D64.9 Anemia, unspecified; E11.51 Type 2 diabetes mellitus with diabetic peripheral angiopathy without gangrene; E11.40 Type 2 diabetes mellitus with diabetic neuropathy, unspecified; I10 Essential (primary) hypertension; E78.5 Hyperlipidemia, unspecified; E11.621 Type 2 diabetes mellitus with foot ulcer; L97.509 Non-pressure chronic ulcer of other part of unspecified foot with unspecified severity; Z20.822 Contact with and (suspected) exposure to COVID-19; E78.00 Pure hypercholesterolemia, unspecified; F41.9 Anxiety disorder, unspecified; I25.10 Atherosclerotic heart disease of native coronary artery without angina pectoris; Y83.8 Other surgical procedures as the cause of abnormal reaction of the patient, or of later complication, without mention of misadventure at the time of the procedure; Y92.89 Other specified places as the place of occurrence of the external cause; Z79.899 Other long term (current) drug therapy; Z88.2 Allergy status to sulfonamides; Z88.8 Allergy status to other drugs, medicaments and biological substances; Z91.041 Radiographic dye allergy status; Z90.49 Acquired absence of other specified parts of digestive tract; Z95.1 Presence of aortocoronary bypass graft; Z82.49 Family history of ischemic heart disease and other diseases of the circulatory system
CPT/HCPCS: 36415; 80048; 80053; 82948; 83036; 85014; 85018; 85025; 85027; 85610; 85730; 86850; 86900; 86901; 86923; 87635; 97039; A4344; C1757; G0378; J0690; J1644; J1815; J1885; J2001; J2250; J2405; J2704; J2710; J3010; J3490; J7030; J7040; P9016

== ENCOUNTER 2021-04-11 14:08 | Inpatient (IN) | payer BC ==
[2021-04-11] VITALS (10 sets, daily range): BP systolic 119–165; BP diastolic 64–78
[~2021-04-11] VITALS: Ht 157.5 cm; Wt 72.6 kg
[~2021-04-11 14:08] MED LIST changes: +CLOP75TA32 PO; +FERR325T29 PO
[2021-04-11] MEDS ORDERED: LACTATED RINGERS 1000ML 1,000 ML IV SCH (15:00)
[2021-04-11] MEDS ORDERED: MORPHINE 4 MG SYG IV PRN (15:00)
[2021-04-11] MEDS ORDERED: HYDRALAZINE 20MG/ML VIAL IV PRN (15:00)
[2021-04-11] MEDS: MORPHINE 4 MG SYG IV PRN (15:28)
[2021-04-11 15:34] LABS: HEMATOCRIT 24.5 % (36-48); MEAN CORPUSCULAR HEMOGLOBIN 27.1 pg (27.0-33.0); MEAN CORPUSCULAR HGB CONC 32.2 g/dL (32.0-36.0); MEAN CORPUSCULAR VOLUME 84.2 fL (79-99); RED BLOOD CELL COUNT(AUTO) 2.91 MIL/uL (4.00-5.50); RED CELL DISTRIBUTION WIDTH 14.9 % (11.0-15.5); WHITE BLOOD COUNT (AUTO) 9.4 K/uL (4.8-10.8)
[2021-04-11 15:49] LABS: ALBUMIN 3.2 g/dL (3.5-5.0); BILIRUBIN,TOTAL 0.4 mg/dL (0.2-1.0); INR 1.05 (0.85-1.15); POTASSIUM 3.8 mmol/L (3.5-5.1); PROTHROMBIN TIME 11.4 SEC (9.6-11.6); TOTAL PROTEIN, SERUM 6.5 g/dL (6.0-8.3)
[2021-04-11] MEDS: CEFAZOLIN SODIUM 1 GM VIAL IVP SCH ×2 (16:39→23:47)
[2021-04-11 16:53] LABS: APPEARANCE,URINE Clear (CLEAR); BILIRUBIN,URINE Negative (NEGATIVE); COLOR,URINE Yellow (YELLOW); GLUCOSE, URINE (UA) TRACE mg/dL (NEGATIVE); KETONES,URINE 15 mg/dL (NEGATIVE); LEUKOCYTE ESTERASE ,URINE Negative (NEGATIVE); NITRATE,URINE Negative (NEGATIVE); OCCULT BLOOD,URINE Negative (NEGATIVE); PROTEIN,URINE Negative (NEGATIVE); UROBILINOGEN,URINE 0.2 mg/dL (0.2-1.0)
[2021-04-11 17:05] LABS: BACTERIA,URINE Few /HPF (None Seen); MUCUS,URINE Moderate LPF (None Seen); SQUAMOUS EPITHELIAL CELL,UR Few /HPF (0-2); WBC,URINE 0-1 /HPF (0-1)
[2021-04-11 19:14] LABS: HEMATOCRIT 22.9 % (36-48)
[2021-04-11] MEDS ORDERED: 0.9% NACL 500ML IV.SOLN 500 ML IV ONE (20:04)
[2021-04-11] MEDS: FAMOTIDINE 20MG VIAL IV SCH (20:38)
[2021-04-12] VITALS (25 sets, daily range): BP systolic 124–168; BP diastolic 57–81
[2021-04-12] MEDS: MORPHINE 4 MG SYG IV PRN ×4 (00:03→17:47)
[2021-04-12 07:05] LABS: BASOPHILS % (AUTO) 0.5 % (0.0-5.0); EOSINOPHILS % (AUTO) 0.2 % (0.0-8.0); HEMATOCRIT 25.1 % (36-48); LYMPHOCYTES % (AUTO) 12.3 % (21.0-51.0); MEAN CORPUSCULAR HEMOGLOBIN 27.9 pg (27.0-33.0); MEAN CORPUSCULAR HGB CONC 33.5 g/dL (32.0-36.0); MEAN CORPUSCULAR VOLUME 83.4 fL (79-99); MONOCYTES % (AUTO) 8.5 % (3.0-13.0); PLATELET COUNT (AUTO) 272 K/uL (130-400); RED BLOOD CELL COUNT(AUTO) 3.01 MIL/uL (4.00-5.50); RED CELL DISTRIBUTION WIDTH 14.5 % (11.0-15.5); WHITE BLOOD COUNT (AUTO) 8.6 K/uL (4.8-10.8)
[2021-04-12 07:13] LABS: CREATININE 0.8 mg/dL (0.5-1.5); POTASSIUM 3.6 mmol/L (3.5-5.1)
[2021-04-12] MEDS: CEFAZOLIN SODIUM 1 GM VIAL IVP SCH ×3 (07:33→23:44)
[2021-04-12] MEDS: FAMOTIDINE 20MG VIAL IV SCH ×2 (08:14→20:34)
[2021-04-12] MEDS ORDERED: HYDRALAZINE 20MG/ML VIAL IV PRN (10:30)
[2021-04-12] MEDS ORDERED: METOPROLOL TARTRATE 1 MG/ML 5ML VIAL IV PRN (10:30)
[2021-04-12 10:31] LABS: HEMOGLOBIN A1C 7.4 % (4.0-6.0)
[2021-04-12] MEDS: METOPROLOL SUCCINATE 50 MG TAB.SR.24H PO SCH (10:38)
[2021-04-12] MEDS: LOSARTAN 50 MG TABLET PO SCH (10:38)
[2021-04-12] MEDS: INSULIN HUMULIN R 100 UNIT/ML 3ML SQ SCH ×4 (11:00→23:46)
[2021-04-12] MEDS ORDERED: SOLU-MEDROL 40MG VIAL IVP ONE ×2 (16:30→20:30)
[2021-04-12] MEDS ORDERED: DiphenhydrAMINE HCL 50 MG/ML VIAL IV ONE (20:30)
[2021-04-12] MEDS ORDERED: IOHEXOL-350 75 ML VIAL IV ONE (21:03)
[2021-04-12] MEDS ORDERED: IOHEXOL-350 50ML VIAL IV ONE (21:03)
[2021-04-12] MEDS: INSULIN GLARGINE 100 UNITS/ML 10 ML VIAL SQ SCH (21:07)
[2021-04-13] VITALS (23 sets, daily range): BP systolic 103–159; BP diastolic 39–82
[2021-04-13] MEDS: INSULIN HUMULIN R 100 UNIT/ML 3ML SQ SCH ×4 (06:04→21:15)
[2021-04-13 07:55] LABS: BASOPHILS % (AUTO) 0.2 % (0.0-5.0); HEMATOCRIT 28.7 % (36-48); LYMPHOCYTES % (AUTO) 11.3 % (21.0-51.0); MEAN CORPUSCULAR HEMOGLOBIN 27.4 pg (27.0-33.0); MEAN CORPUSCULAR HGB CONC 32.4 g/dL (32.0-36.0); MEAN CORPUSCULAR VOLUME 84.7 fL (79-99); MONOCYTES % (AUTO) 5.5 % (3.0-13.0); NEUTROPHILS % (AUTO) 82.3 % (40.0-77.0); PLATELET COUNT (AUTO) 392 K/uL (130-400); RED BLOOD CELL COUNT(AUTO) 3.39 MIL/uL (4.00-5.50); RED CELL DISTRIBUTION WIDTH 14.8 % (11.0-15.5); WHITE BLOOD COUNT (AUTO) 11.5 K/uL (4.8-10.8)
[2021-04-13] MEDS: CEFAZOLIN SODIUM 1 GM VIAL IVP SCH ×3 (08:06→23:31)
[2021-04-13] MEDS: METOPROLOL SUCCINATE 50 MG TAB.SR.24H PO SCH (08:06)
[2021-04-13] MEDS: LOSARTAN 50 MG TABLET PO SCH (08:06)
[2021-04-13] MEDS: FAMOTIDINE 20MG VIAL IV SCH ×2 (08:07→20:53)
[2021-04-13] MEDS: ATORVASTATIN 40 MG TABLET PO SCH (08:08)
[2021-04-13 08:25] LABS: ALBUMIN 3.3 g/dL (3.5-5.0); BILIRUBIN,TOTAL 0.5 mg/dL (0.2-1.0); CREATININE 1.1 mg/dL (0.5-1.5); POTASSIUM 3.6 mmol/L (3.5-5.1); TOTAL PROTEIN, SERUM 7.2 g/dL (6.0-8.3)
[2021-04-13] MEDS: ASPIRIN 81 MG EC TAB PO SCH (09:30)
[2021-04-13] MEDS: FUROSEMIDE 20 MG TABLET PO SCH (09:30)
[2021-04-13] MEDS: MORPHINE 4 MG SYG IV PRN (12:50)
[2021-04-13] MEDS: GABAPENTIN 100 MG CAPSULE PO SCH ×2 (14:12→20:53)
[2021-04-13] MEDS ORDERED: ACETAMINOPHEN 325 MG TAB ONE (19:40)
[2021-04-13] MEDS ORDERED: TRAMADOL HCL 50 MG TABLET ONE (20:45)
[2021-04-13] MEDS ORDERED: TRAMADOL HCL 50 MG TABLET PO ONE (21:00)
[2021-04-13] MEDS: INSULIN GLARGINE 100 UNITS/ML 10 ML VIAL SQ SCH (21:14)
[2021-04-14] VITALS (11 sets, daily range): BP systolic 107–151; BP diastolic 44–80
[2021-04-14] MEDS: INSULIN HUMULIN R 100 UNIT/ML 3ML SQ SCH ×4 (06:22→21:05)
[2021-04-14 06:27] LABS: BASOPHILS % (AUTO) 0.5 % (0.0-5.0); EOSINOPHILS % (AUTO) 1.5 % (0.0-8.0); HEMATOCRIT 24.8 % (36-48); LYMPHOCYTES % (AUTO) 24.5 % (21.0-51.0); MEAN CORPUSCULAR HEMOGLOBIN 27.2 pg (27.0-33.0); MEAN CORPUSCULAR HGB CONC 32.3 g/dL (32.0-36.0); MEAN CORPUSCULAR VOLUME 84.4 fL (79-99); MONOCYTES % (AUTO) 8.5 % (3.0-13.0); NEUTROPHILS % (AUTO) 64.6 % (40.0-77.0); PLATELET COUNT (AUTO) 384 K/uL (130-400); RED BLOOD CELL COUNT(AUTO) 2.94 MIL/uL (4.00-5.50); RED CELL DISTRIBUTION WIDTH 14.8 % (11.0-15.5); WHITE BLOOD COUNT (AUTO) 9.3 K/uL (4.8-10.8)
[2021-04-14 06:40] LABS: ALBUMIN 2.9 g/dL (3.5-5.0); BILIRUBIN,TOTAL 0.3 mg/dL (0.2-1.0); POTASSIUM 3.5 mmol/L (3.5-5.1); TOTAL PROTEIN, SERUM 6.1 g/dL (6.0-8.3)
[2021-04-14] MEDS: FAMOTIDINE 20MG VIAL IV SCH ×2 (08:15→21:03)
[2021-04-14] MEDS: CEFAZOLIN SODIUM 1 GM VIAL IVP SCH ×2 (08:15→16:37)
[2021-04-14] MEDS: ATORVASTATIN 40 MG TABLET PO SCH (08:17)
[2021-04-14] MEDS: GABAPENTIN 100 MG CAPSULE PO SCH ×3 (08:17→21:03)
[2021-04-14] MEDS: ASPIRIN 81 MG EC TAB PO SCH (08:17)
[2021-04-14] MEDS: METOPROLOL SUCCINATE 50 MG TAB.SR.24H PO SCH (08:17)
[2021-04-14] MEDS: FUROSEMIDE 20 MG TABLET PO SCH (08:17)
[2021-04-14] MEDS: LOSARTAN 50 MG TABLET PO SCH (08:18)
[2021-04-14] MEDS: TRAMADOL HCL 50 MG TABLET PO PRN ×2 (09:04→16:37)
[2021-04-14 16:03] LABS: HEMATOCRIT 24.7 % (36-48)
[2021-04-14] MEDS: LACTATED RINGERS 1000ML 1,000 ML IV SCH (17:41)
[2021-04-14] MEDS: INSULIN GLARGINE 100 UNITS/ML 10 ML VIAL SQ SCH (21:06)
[2021-04-15] MEDS: CEFAZOLIN SODIUM 1 GM VIAL IVP SCH ×3 (01:38→16:59)
[2021-04-15] MEDS: LACTATED RINGERS 1000ML 1,000 ML IV SCH ×2 (02:50→13:30)
[2021-04-15 03:57] VITALS: BP 138/56
[2021-04-15 04:23] LABS: HEMATOCRIT 21.3 % (36-48); MEAN CORPUSCULAR HEMOGLOBIN 27.2 pg (27.0-33.0); MEAN CORPUSCULAR HGB CONC 31.5 g/dL (32.0-36.0); MEAN CORPUSCULAR VOLUME 86.6 fL (79-99); RED BLOOD CELL COUNT(AUTO) 2.46 MIL/uL (4.00-5.50); RED CELL DISTRIBUTION WIDTH 14.7 % (11.0-15.5); WHITE BLOOD COUNT (AUTO) 6.3 K/uL (4.8-10.8)
[2021-04-15] MEDS: TRAMADOL HCL 50 MG TABLET PO PRN (04:42)
[2021-04-15 04:52] LABS: CREATININE 0.7 mg/dL (0.5-1.5); POTASSIUM 3.7 mmol/L (3.5-5.1)
[2021-04-15 06:00] LABS: HEMATOCRIT 24.6 % (36-48)
[2021-04-15] MEDS: INSULIN HUMULIN R 100 UNIT/ML 3ML SQ SCH ×3 (06:07→16:56)
[2021-04-15 07:00] VITALS: BP 144/66
[2021-04-15] MEDS: FAMOTIDINE 20MG VIAL IV SCH (09:08)
[2021-04-15] MEDS: LOSARTAN 50 MG TABLET PO SCH (09:09)
[2021-04-15] MEDS: ATORVASTATIN 40 MG TABLET PO SCH (09:09)
[2021-04-15] MEDS: METOPROLOL SUCCINATE 50 MG TAB.SR.24H PO SCH (09:09)
[2021-04-15] MEDS: FUROSEMIDE 20 MG TABLET PO SCH (09:09)
[2021-04-15] MEDS: GABAPENTIN 100 MG CAPSULE PO SCH ×2 (09:09→14:00)
[2021-04-15] MEDS: ASPIRIN 81 MG EC TAB PO SCH (09:10)
[2021-04-15 11:00] VITALS: BP 119/51
[2021-04-15 16:00] VITALS: BP 125/65
== END 2021-04-15 17:51 | DRG 683 ==
LOC: 2DH 14:08
PROVIDERS: ADMIT Internal Medicine; ATTEND Internal Medicine
PROC: 30233N1 Transfusion of Nonautologous Red Blood Cells into Peripheral Vein, Percutaneous Approach (ICD-10-PCS; principal; 2021-04-11)
DX: N17.9 Acute kidney failure, unspecified (principal); T82.838A Hemorrhage due to vascular prosthetic devices, implants and grafts, initial encounter; D64.9 Anemia, unspecified; E11.51 Type 2 diabetes mellitus with diabetic peripheral angiopathy without gangrene; E11.40 Type 2 diabetes mellitus with diabetic neuropathy, unspecified; E86.0 Dehydration; I10 Essential (primary) hypertension; E78.00 Pure hypercholesterolemia, unspecified; E78.5 Hyperlipidemia, unspecified; F41.9 Anxiety disorder, unspecified; H54.61 Unqualified visual loss, right eye, normal vision left eye; I25.10 Atherosclerotic heart disease of native coronary artery without angina pectoris; Z95.1 Presence of aortocoronary bypass graft; Z79.82 Long term (current) use of aspirin; Z79.899 Other long term (current) drug therapy; Z90.49 Acquired absence of other specified parts of digestive tract; Z91.041 Radiographic dye allergy status; Z88.2 Allergy status to sulfonamides; Z88.8 Allergy status to other drugs, medicaments and biological substances; Z82.3 Family history of stroke; Z82.41 Family history of sudden cardiac death; Z80.49 Family history of malignant neoplasm of other genital organs; Z82.49 Family history of ischemic heart disease and other diseases of the circulatory system
CPT/HCPCS: 36415; 71045; 75635; 80048; 80053; 81001; 82550; 82948; 83036; 85014; 85018; 85025; 85027; 85610; 86850; 86900; 86901; 86923; 97039; A4344; G0378; J0690; J1200; J1815; J2270; J2920; J3490; J7040; J7120; P9016; Q9967

== ENCOUNTER 2021-04-26 17:57 | Inpatient (IN) | payer BC ==
[~2021-04-26] VITALS: Ht 157.5 cm; Wt 66.8 kg
[~2021-04-26 17:57] MED LIST changes: -FLUT16H NASAL; -MONT-39 PO
[2021-04-26 19:40] LABS: BASOPHILS % (AUTO) 0.7 % (0.0-5.0); EOSINOPHILS % (AUTO) 1.1 % (0.0-8.0); HEMATOCRIT 27.9 % (36-48); LYMPHOCYTES % (AUTO) 17.8 % (21.0-51.0); MEAN CORPUSCULAR HGB CONC 31.2 g/dL (32.0-36.0); MEAN CORPUSCULAR VOLUME 83.3 fL (79-99); MONOCYTES % (AUTO) 7.8 % (3.0-13.0); NEUTROPHILS % (AUTO) 72.1 % (40.0-77.0); PLATELET COUNT (AUTO) 583 K/uL (130-400); RED BLOOD CELL COUNT(AUTO) 3.35 MIL/uL (4.00-5.50); RED CELL DISTRIBUTION WIDTH 14.5 % (11.0-15.5); WHITE BLOOD COUNT (AUTO) 9.5 K/uL (4.8-10.8)
[2021-04-26 19:56] LABS: ALBUMIN 2.8 g/dL (3.5-5.0); BILIRUBIN,TOTAL 0.6 mg/dL (0.2-1.0); CREATININE 1.4 mg/dL (0.5-1.5); POTASSIUM 3.9 mmol/L (3.5-5.1)
[2021-04-26 20:10] LABS: CRP QUANTITATIVE 171.1 mg/L (0.00-9.0)
[2021-04-26 20:40] LABS: APPEARANCE,URINE Clear (CLEAR); BILIRUBIN,URINE Negative (NEGATIVE); COLOR,URINE Dark Yellow (YELLOW); GLUCOSE, URINE (UA) Negative (NEGATIVE); KETONES,URINE 15 mg/dL (NEGATIVE); LEUKOCYTE ESTERASE ,URINE Moderate (NEGATIVE); NITRATE,URINE Negative (NEGATIVE); OCCULT BLOOD,URINE Negative (NEGATIVE); PH,URINE 6.5 (5.0-8.0); PROTEIN,URINE Trace mg/dL (NEGATIVE); UROBILINOGEN,URINE 0.2 mg/dL (0.2-1.0)
[2021-04-26 20:53] LABS: BACTERIA,URINE Few /HPF (None Seen); MUCUS,URINE Few LPF (None Seen); SQUAMOUS EPITHELIAL CELL,UR Few /HPF (0-2); YEAST,URINE BUDDING Many /HPF (None Seen)
[2021-04-26] MEDS ORDERED: NITROGLYCERIN 1GM OINT 1 INCH/1GM TD ONE (21:00)
[2021-04-26] MEDS ORDERED: ASPIRIN 325MG TAB PO ONE (21:00)
[2021-04-26] MEDS ORDERED: ACETAMINOPHEN 325 MG TAB PO PRN (21:30)
[2021-04-26] MEDS ORDERED: ONDANSETRON 4MG INJ IV PRN (21:30)
[2021-04-26] MEDS ORDERED: MORPHINE 4 MG SYG IV PRN (21:30)
[2021-04-26] MEDS ORDERED: MORPHINE 2 MG SYG IV PRN (21:30)
[2021-04-26] MEDS ORDERED: HYDRALAZINE 20MG/ML VIAL IV PRN (21:30)
[2021-04-26] MEDS: NITROGLYCERIN 1GM OINT 1 INCH/1GM TD SCH (22:01)
[2021-04-26] MEDS: LACTATED RINGERS 1000ML 1,000 ML IV SCH (22:01)
[2021-04-26] MEDS: MEROPENEM 1 GM VIAL IVP SCH (23:18)
[2021-04-27] MEDS: NITROGLYCERIN 1GM OINT 1 INCH/1GM TD SCH ×3 (06:41→21:41)
[2021-04-27] MEDS: LACTATED RINGERS 1000ML 1,000 ML IV SCH ×2 (07:59→17:30)
[2021-04-27 08:01] LABS: BASOPHILS % (AUTO) 0.8 % (0.0-5.0); EOSINOPHILS % (AUTO) 1.2 % (0.0-8.0); HEMATOCRIT 25.5 % (36-48); LYMPHOCYTES % (AUTO) 16.6 % (21.0-51.0); MEAN CORPUSCULAR HEMOGLOBIN 25.9 pg (27.0-33.0); MEAN CORPUSCULAR HGB CONC 31.4 g/dL (32.0-36.0); MEAN CORPUSCULAR VOLUME 82.5 fL (79-99); MONOCYTES % (AUTO) 6.7 % (3.0-13.0); NEUTROPHILS % (AUTO) 74.2 % (40.0-77.0); PLATELET COUNT (AUTO) 507 K/uL (130-400); RED BLOOD CELL COUNT(AUTO) 3.09 MIL/uL (4.00-5.50); RED CELL DISTRIBUTION WIDTH 14.6 % (11.0-15.5); WHITE BLOOD COUNT (AUTO) 8.5 K/uL (4.8-10.8)
[2021-04-27] MEDS: MEROPENEM 1 GM VIAL IVP SCH ×3 (08:09→23:15)
[2021-04-27 08:15] LABS: INR 1.1 (0.85-1.15); PROTHROMBIN TIME 11.9 SEC (9.6-11.6)
[2021-04-27 08:16] LABS: PARTIAL THROMBOPLASTIN TIME 29.4 SEC (26.3-35.5)
[2021-04-27 08:34] LABS: CREATININE 0.8 mg/dL (0.5-1.5); MAGNESIUM 1.6 mg/dL (1.80-2.40); POTASSIUM 4.4 mmol/L (3.5-5.1)
[2021-04-27] MEDS: FAMOTIDINE 20MG VIAL IV SCH (08:59)
[2021-04-27] MEDS ORDERED: TRAMADOL HCL 50 MG TABLET PO ONE (09:30)
[2021-04-27] MEDS ORDERED: DRON10CA5 PO (09:52)
[2021-04-27] MEDS ORDERED: FERS325 PO (09:52)
[2021-04-27] MEDS ORDERED: FURO20TA4 PO (09:52)
[2021-04-27] MEDS ORDERED: SODI473S9 TP (09:52)
[2021-04-27] MEDS ORDERED: DOCU100T PO (09:52)
[2021-04-27] MEDS ORDERED: FAMO-136 PO (09:52)
[2021-04-27] MEDS ORDERED: TRAM50TA4 PO (09:53)
[2021-04-27] MEDS ORDERED: GABA-529 PO (09:53)
[2021-04-27] MEDS ORDERED: [UNRECOGNIZED DRUG - CODE] IV (09:53)
[2021-04-27] MEDS ORDERED: LOSA50TA64 PO (09:53)
[2021-04-27] MEDS ORDERED: METO25TA3 PO (09:53)
[2021-04-27] MEDS ORDERED: INSREG SQ (09:53)
[2021-04-27] MEDS ORDERED: GENT30OI2 TP (09:53)
[2021-04-27] MEDS ORDERED: NUTR1PAC14 PO (09:53)
[2021-04-27] MEDS ORDERED: SANTO TP (09:53)
[2021-04-27] MEDS ORDERED: ATOR40TA69 PO (09:53)
[2021-04-27] MEDS ORDERED: BALS60OI TP (09:53)
[2021-04-27] MEDS ORDERED: MERO1VIA23 IV (09:53)
[2021-04-27] MEDS ORDERED: METF-444 PO (09:53)
[2021-04-27] MEDS ORDERED: RIFA300C4 PO (09:53)
[2021-04-27] MEDS ORDERED: PROTEIN SUPPLEMENT PO (09:53)
[2021-04-27] MEDS ORDERED: INSU100V12 SQ (09:53)
[2021-04-27] MEDS: RIFAMPIN 300 MG CAPSULE PO SCH (10:08)
[2021-04-27] MEDS: GABAPENTIN 300 MG CAPSULE PO SCH (10:08)
[2021-04-27 15:18] LABS: INR 1.1 (0.85-1.15); PROTHROMBIN TIME 11.9 SEC (9.6-11.6)
[2021-04-27 15:20] LABS: PARTIAL THROMBOPLASTIN TIME 24.7 SEC (26.3-35.5)
[2021-04-27] MEDS ORDERED: HEPARIN 25,000 UNITS/250ML D5W 250 ML IV PRN (15:30)
[2021-04-27] MEDS ORDERED: HEPARIN 5,000 UNIT VIAL ONE (15:59)
[2021-04-27] MEDS ORDERED: MAGNESIUM 2GM PREMIX 50ML 50 ML IV PRN (16:00)
[2021-04-27] MEDS ORDERED: POTASSIUM CHLORIDE 10MEQ/100ML 100 ML IV PRN (16:00)
[2021-04-27] MEDS ORDERED: KCL 20 MEQ ERTAB PO PRN (16:00)
[2021-04-27] MEDS ORDERED: POTASSIUM CHLORIDE 10% ELIXIR 20 MEQ/15 ML UDCUP PO PRN (16:00)
[2021-04-27] MEDS ORDERED: LIDOCAINE HCL-MPF 1% 2ML VIAL IV PRN (16:00)
[2021-04-27] MEDS ORDERED: IOHEXOL-350 75 ML VIAL IV ONE ×2 (16:08→19:40)
[2021-04-27] MEDS ORDERED: IOHEXOL-350 50ML VIAL IV ONE ×2 (16:09→19:40)
[2021-04-27] MEDS: INSULIN HUMULIN R 100 UNIT/ML 3ML SQ SCH ×2 (16:30→21:38)
[2021-04-27 16:45] VITALS: BP 135/91
[2021-04-27] MEDS: HEPARIN 25,000 UNITS/250ML D5W 250 ML IV SCH (16:51)
[2021-04-27 18:00] VITALS: BP 147/76
[2021-04-27] MEDS ORDERED: SOLU-MEDROL 125MG VIAL IVP SCH (18:00)
[2021-04-27] MEDS ORDERED: DiphenhydrAMINE HCL 50 MG/ML VIAL IV SCH (18:00)
[2021-04-27] MEDS ORDERED: TRAMADOL HCL 50 MG TABLET PO SCH (20:00)
[2021-04-27 20:50] VITALS: BP 146/71
[2021-04-27] MEDS: ATORVASTATIN 40 MG TABLET PO SCH (21:40)
[2021-04-27 23:45] VITALS: BP 150/83
[2021-04-28] MEDS: LACTATED RINGERS 1000ML 1,000 ML IV SCH ×2 (01:04→16:44)
[2021-04-28] MEDS: TRAMADOL HCL 50 MG TABLET PO PRN ×4 (01:05→23:10)
[2021-04-28 03:10] VITALS: BP 136/62
[2021-04-28] MEDS: MEROPENEM 1 GM VIAL IVP SCH ×3 (06:12→22:59)
[2021-04-28] MEDS: NITROGLYCERIN 1GM OINT 1 INCH/1GM TD SCH ×3 (06:13→20:53)
[2021-04-28] MEDS: INSULIN HUMULIN R 100 UNIT/ML 3ML SQ SCH ×4 (06:38→20:48)
[2021-04-28 08:00] VITALS: BP 130/72
[2021-04-28] MEDS ORDERED: ENOXAPARIN SODIUM 30 MG/0.3 ML SQ SCH (09:00)
[2021-04-28] MEDS: METOPROLOL SUCCINATE 50 MG TAB.SR.24H PO SCH (10:13)
[2021-04-28] MEDS: FAMOTIDINE 20MG VIAL IV SCH (10:13)
[2021-04-28 11:54] VITALS: BP 138/64
[2021-04-28] MEDS ORDERED: REGADENOSON 0.4 MG/5 ML PF SYG IVP SCH (13:00)
[2021-04-28 16:03] VITALS: BP 147/67
[2021-04-28] MEDS: ASPIRIN 81 MG EC TAB PO SCH (16:27)
[2021-04-28] MEDS: GABAPENTIN 300 MG CAPSULE PO SCH (16:28)
[2021-04-28] MEDS: RIFAMPIN 300 MG CAPSULE PO SCH (16:28)
[2021-04-28] MEDS: HEPARIN 25,000 UNITS/250ML D5W 250 ML IV SCH (19:40)
[2021-04-28 19:56] VITALS: BP 146/65
[2021-04-28] MEDS: ATORVASTATIN 40 MG TABLET PO SCH (20:53)
[2021-04-28 23:48] VITALS: BP 145/71
[2021-04-29] MEDS: LACTATED RINGERS 1000ML 1,000 ML IV SCH (02:43)
[2021-04-29 04:06] VITALS: BP 139/73
[2021-04-29] MEDS: NITROGLYCERIN 1GM OINT 1 INCH/1GM TD SCH ×3 (05:52→21:41)
[2021-04-29] MEDS: MEROPENEM 1 GM VIAL IVP SCH ×3 (06:10→23:06)
[2021-04-29] MEDS: INSULIN HUMULIN R 100 UNIT/ML 3ML SQ SCH ×4 (06:12→21:40)
[2021-04-29 07:58] LABS: BASOPHILS % (AUTO) 0.4 % (0.0-5.0); EOSINOPHILS % (AUTO) 1.7 % (0.0-8.0); HEMATOCRIT 27.1 % (36-48); LYMPHOCYTES % (AUTO) 9.9 % (21.0-51.0); MEAN CORPUSCULAR HEMOGLOBIN 25.8 pg (27.0-33.0); MEAN CORPUSCULAR HGB CONC 31.7 g/dL (32.0-36.0); MEAN CORPUSCULAR VOLUME 81.4 fL (79-99); MONOCYTES % (AUTO) 3.6 % (3.0-13.0); NEUTROPHILS % (AUTO) 83.3 % (40.0-77.0); PLATELET COUNT (AUTO) 590 K/uL (130-400); RED BLOOD CELL COUNT(AUTO) 3.33 MIL/uL (4.00-5.50); RED CELL DISTRIBUTION WIDTH 14.8 % (11.0-15.5); WHITE BLOOD COUNT (AUTO) 8.5 K/uL (4.8-10.8)
[2021-04-29 08:14] LABS: HEMOGLOBIN A1C 7.4 % (4.0-6.0)
[2021-04-29 08:27] VITALS: BP 139/58
[2021-04-29 08:43] LABS: ALBUMIN 2.4 g/dL (3.5-5.0); BILIRUBIN,TOTAL 0.3 mg/dL (0.2-1.0); CREATININE 0.8 mg/dL (0.5-1.5); POTASSIUM 3.7 mmol/L (3.5-5.1); THYROID STIMULATING HORMONE 1.02 uIU/mL (0.36-3.74)
[2021-04-29 08:47] LABS: % IRON SATURATION 12.1 % (22-44)
[2021-04-29] MEDS: PROTEIN SUPPLEMENT PO SCH (09:00)
[2021-04-29] MEDS: METOPROLOL SUCCINATE 50 MG TAB.SR.24H PO SCH ×2 (09:00→10:33)
[2021-04-29] MEDS: RIFAMPIN 300 MG CAPSULE PO SCH ×3 (09:00→20:05)
[2021-04-29] MEDS ORDERED: FAMOTIDINE 20MG TAB ONE (09:08)
[2021-04-29] MEDS ORDERED: FAMOTIDINE 20MG TAB PO SCH (09:30)
[2021-04-29] MEDS: GABAPENTIN 300 MG CAPSULE PO SCH (09:30)
[2021-04-29] MEDS: ASPIRIN 81 MG EC TAB PO SCH (10:32)
[2021-04-29] MEDS: LOSARTAN 50 MG TABLET PO SCH (10:33)
[2021-04-29] MEDS: DRONABINOL 2.5 MG CAP PO SCH ×2 (10:33→20:05)
[2021-04-29] MEDS: TRAMADOL HCL 50 MG TABLET PO PRN ×2 (10:37→16:15)
[2021-04-29 11:44] VITALS: BP 130/70
[2021-04-29] MEDS: ARGIN/GLUT/CAHMB/COLLAG/MV-MIN 1 EACH POWD.PACK PO SCH (13:53)
[2021-04-29 16:27] VITALS: BP 137/71
[2021-04-29] MEDS ORDERED: GABAPENTIN 300 MG CAPSULE ONE (19:58)
[2021-04-29] MEDS ORDERED: COMPOUND IV MISC 1 EACH IVSOLN MISC PRN (20:00)
[2021-04-29] MEDS: ATORVASTATIN 40 MG TABLET PO SCH (20:05)
[2021-04-29] MEDS: GABAPENTIN 100 MG CAPSULE PO SCH (20:07)
[2021-04-29 20:13] VITALS: BP 143/72
[2021-04-29] MEDS ORDERED: INSULIN GLARGINE 100 UNITS/ML 10 ML VIAL SQ SCH (21:00)
[2021-04-29] MEDS ORDERED: EPOETIN ALFA-EPBX (NON-ESRD) 10,000 UNIT/ML VIAL SQ SCH (21:00)
[2021-04-29] MEDS ORDERED: COMPOUND IV REFRIGERATED 1 EACH MISC ONE (21:36)
[2021-04-29] MEDS: IRON SUCROSE COMPLEX 300 MG in 0.9% NACL 250ML 250 ML IV SCH (21:40)
[2021-04-29] MEDS: HEPARIN 25,000 UNITS/250ML D5W 250 ML IV SCH (21:53)
[2021-04-29 23:43] VITALS: BP 127/69
[2021-04-30 00:05] LABS: CREATINE KINASE, TOTAL 31 U/L (21-232); MYOGLOBIN 27 ng/mL (10-92)
[2021-04-30] MEDS: TRAMADOL HCL 50 MG TABLET PO PRN (02:58)
[2021-04-30 04:00] VITALS: BP 135/66
[2021-04-30 04:14] LABS: BASOPHILS % (AUTO) 0.4 % (0.0-5.0); EOSINOPHILS % (AUTO) 3.4 % (0.0-8.0); HEMATOCRIT 25.6 % (36-48); LYMPHOCYTES % (AUTO) 14.9 % (21.0-51.0); MEAN CORPUSCULAR HEMOGLOBIN 25.8 pg (27.0-33.0); MEAN CORPUSCULAR HGB CONC 31.6 g/dL (32.0-36.0); MEAN CORPUSCULAR VOLUME 81.5 fL (79-99); MONOCYTES % (AUTO) 6.8 % (3.0-13.0); NEUTROPHILS % (AUTO) 72.9 % (40.0-77.0); PLATELET COUNT (AUTO) 550 K/uL (130-400); RED BLOOD CELL COUNT(AUTO) 3.14 MIL/uL (4.00-5.50); RED CELL DISTRIBUTION WIDTH 14.9 % (11.0-15.5); WHITE BLOOD COUNT (AUTO) 7.4 K/uL (4.8-10.8)
[2021-04-30 04:26] LABS: CREATININE 0.8 mg/dL (0.5-1.5); POTASSIUM 3.7 mmol/L (3.5-5.1)
[2021-04-30] MEDS: NITROGLYCERIN 1GM OINT 1 INCH/1GM TD SCH ×2 (04:52→12:23)
[2021-04-30] MEDS: MEROPENEM 1 GM VIAL IVP SCH ×2 (06:19→15:30)
[2021-04-30] MEDS: INSULIN HUMULIN R 100 UNIT/ML 3ML SQ SCH ×3 (06:21→16:30)
[2021-04-30 07:00] VITALS: BP 115/59
[2021-04-30] MEDS: METOPROLOL SUCCINATE 50 MG TAB.SR.24H PO SCH ×2 (09:00→10:08)
[2021-04-30] MEDS ORDERED: FAMOTIDINE 20MG TAB PO SCH (09:00)
[2021-04-30] MEDS: PROTEIN SUPPLEMENT PO SCH (09:00)
[2021-04-30] MEDS ORDERED: CLOPIDOGREL 75MG TAB PO SCH (09:00)
[2021-04-30] MEDS: ASPIRIN 81 MG EC TAB PO SCH (10:04)
[2021-04-30] MEDS: RIFAMPIN 300 MG CAPSULE PO SCH (10:04)
[2021-04-30] MEDS: DRONABINOL 2.5 MG CAP PO SCH (10:05)
[2021-04-30] MEDS: LOSARTAN 50 MG TABLET PO SCH (10:05)
[2021-04-30] MEDS: IRON SUCROSE COMPLEX 300 MG in 0.9% NACL 250ML 250 ML IV SCH (10:06)
[2021-04-30] MEDS: GABAPENTIN 100 MG CAPSULE PO SCH ×2 (10:08→12:24)
[2021-04-30] MEDS: ARGIN/GLUT/CAHMB/COLLAG/MV-MIN 1 EACH POWD.PACK PO SCH (10:25)
[2021-04-30 11:00] VITALS: BP 138/74
[2021-04-30] MEDS ORDERED: NITR1OIN TD (12:52)
[2021-04-30] MEDS ORDERED: CLOP75TA14 PO (12:52)
[2021-04-30] MEDS ORDERED: TRAM50TA4 PO (12:52)
[2021-04-30] MEDS ORDERED: FAMO20TA8 PO (12:52)
[2021-04-30] MEDS ORDERED: GABA-529 PO (12:52)
[2021-04-30] MEDS ORDERED: METO25TA3 PO (12:52)
[2021-04-30] MEDS ORDERED: LOSA50TA64 PO (12:52)
[2021-04-30] MEDS ORDERED: NUTR1PAC14 PO (12:52)
[2021-04-30 16:00] VITALS: BP 131/72
== END 2021-04-30 18:00 | disposition home health service (06) | DRG 315 ==
LOC: EDH 17:57 → EDHIP 21:12 → 2AH 04-27 17:16
PROVIDERS: ADMIT Internal Medicine; ATTEND Internal Medicine
DX: T82.898A Other specified complication of vascular prosthetic devices, implants and grafts, initial encounter (principal); E22.2 Syndrome of inappropriate secretion of antidiuretic hormone; L97.919 Non-pressure chronic ulcer of unspecified part of right lower leg with unspecified severity; Z16.24 Resistance to multiple antibiotics; E11.52 Type 2 diabetes mellitus with diabetic peripheral angiopathy with gangrene; D75.838 Other thrombocytosis; E11.621 Type 2 diabetes mellitus with foot ulcer; E11.65 Type 2 diabetes mellitus with hyperglycemia; D64.9 Anemia, unspecified; Z20.822 Contact with and (suspected) exposure to COVID-19; E78.00 Pure hypercholesterolemia, unspecified; E78.5 Hyperlipidemia, unspecified; I10 Essential (primary) hypertension; H54.61 Unqualified visual loss, right eye, normal vision left eye; I25.10 Atherosclerotic heart disease of native coronary artery without angina pectoris; Y83.2 Surgical operation with anastomosis, bypass or graft as the cause of abnormal reaction of the patient, or of later complication, without mention of misadventure at the time of the procedure; Y92.89 Other specified places as the place of occurrence of the external cause; Z79.899 Other long term (current) drug therapy; Z95.1 Presence of aortocoronary bypass graft; Z90.49 Acquired absence of other specified parts of digestive tract; Z88.2 Allergy status to sulfonamides; Z88.8 Allergy status to other drugs, medicaments and biological substances; Z91.041 Radiographic dye allergy status; Z82.3 Family history of stroke; Z82.49 Family history of ischemic heart disease and other diseases of the circulatory system; Z80.8 Family history of malignant neoplasm of other organs or systems
CPT/HCPCS: 36415; 71045; 73630; 75635; 78452; 80048; 80053; 81001; 82550; 82607; 82728; 82746; 82948; 83036; 83540; 83550; 83605; 83735; 83874; 84100; 84145; 84443; 84484; 85025; 85045; 85610; 85730; 86140; 86850; 86900; 86901; 87040; 87088; 87635; 93005; 93017; 93926; 96374; A9500; G0378; J1200; J1644; J1756; J1815; J2185; J2270; J2405; J2785; J2930; J3490; J7050; J7120; Q0167; Q9967